=== PATIENT | male | born 1945 | race Caucasian/White ===

== ENCOUNTER 2018-05-31 12:27 | Emergency (ER) | payer MEDICARE, OTHER ==
[2018-05-31 12:59] VITALS: BP 116/72; PULSE 89; RESP 18; TEMP 96.7; O2SAT 97
== END 2018-05-31 13:13 | disposition home or self-care (01) | DRG 300 ==
LOC: ED 12:27
DX: I83.023 Varicose veins of left lower extremity with ulcer of ankle (principal); L97.329 Non-pressure chronic ulcer of left ankle with unspecified severity; I87.2 Venous insufficiency (chronic) (peripheral)
CPT/HCPCS: 99283; A6232; A6402

== ENCOUNTER 2018-11-26 09:34 | Day surgery (SDC) | payer MEDICARE, OTHER ==
[~2018-11-26 09:34] MED LIST: LIDOCAINE HCL 1% MPF 30 SOL ONE; PROPOFOL 500 MG/50 ML EMU IV ONE
[2018-11-26 12:05] VITALS: RESP 18
[2018-11-26 12:19] VITALS: BP 123/69; PULSE 79; TEMP 97.4; O2SAT 95
== END 2018-11-26 12:37 | disposition home or self-care (01) | DRG 951 ==
LOC: SURG 09:34
PROVIDERS: ATTEND Surgery
DX: Z12.11 Encounter for screening for malignant neoplasm of colon (principal); K92.1 Melena; K57.32 Diverticulitis of large intestine without perforation or abscess without bleeding; K92.2 Gastrointestinal hemorrhage, unspecified; E11.9 Type 2 diabetes mellitus without complications; D50.9 Iron deficiency anemia, unspecified; D12.2 Benign neoplasm of ascending colon; D12.4 Benign neoplasm of descending colon; D12.5 Benign neoplasm of sigmoid colon
CPT/HCPCS: 99001; J2001; J2704

== ENCOUNTER → 2019-01-20 | Day surgery (SDC) | payer OTHER ==
[~2019-01-20] MED LIST changes: +ACETAZOLAMIDE 250 MG PO ONE; +BSS W/ 0.5 MG P.F. EPI 1 BOTTLE ONE; +KETOROLAC/HOME 0.5% SOL LEFTEYE ONE; +LABETALOL HYDROCHLORIDE 5 MG/ML SOL IV ONE; -LIDOCAINE HCL 1% MPF 30 SOL ONE; +LIDOCAINE HCL 2% MPF 10 ML SOL ONE; +MIDAZOLAM 2 MG/2 ML SOL ONE; +MOXIFLOXACIN-HOME SOL LEFTEYE ONE; +POVIDONE IODINE 5% SOL ONE; -PROPOFOL 500 MG/50 ML EMU IV ONE
[2019-01-20 11:13] VITALS: RESP 16; O2SAT 96
[2019-01-20] MEDS: PHENYLEPHRINE HCL 10% OPHTHAL SOL ONE ×3 (11:25→11:31)
[2019-01-20] MEDS: TROPICAMIDE 1% OPHTH SOL ONE ×3 (11:26→11:31)
[2019-01-20] MEDS: CYCLOPENTOLATE 1% SOL ONE ×3 (11:26→11:31)
[2019-01-20] MEDS: TETRACAINE HCL 0.5 % 1 DROP SOL ONE ×2 (11:32→12:35)
[2019-01-20 13:32] VITALS: BP 152/86; PULSE 75; TEMP 97.7
== END | disposition home or self-care (01) | DRG 125 ==
LOC: SURG 10:48
PROVIDERS: ATTEND Ophthalmology
DX: H25.89 Other age-related cataract (principal); E11.9 Type 2 diabetes mellitus without complications
CPT/HCPCS: J2250; A9270-GY; J3490